=== PATIENT | female | born 1990 | race Hispanic/Latino ===

== ENCOUNTER 2018-06-08 10:51 | Observation (INO) | payer OTHER | END 2018-06-08 13:35 | disposition home or self-care (01) | LOC: LDH 10:51 | DX: Z34.93 Encounter for supervision of normal pregnancy, unspecified, third trimester (principal); Z3A.32 32 weeks gestation of pregnancy | CPT/HCPCS: 59025; 76819; G0378 ×4 ==

== ENCOUNTER 2018-07-07 21:13 | Observation (INO) | payer OTHER ==
[~2018-07-07] VITALS: Ht 165.1 cm; Wt 107.0 kg
[2018-07-07 21:57] LABS: APPEARANCE,URINE Clear (CLEAR); BILIRUBIN,URINE Negative (NEGATIVE); COLOR,URINE Yellow (YELLOW); GLUCOSE, URINE (UA) Negative (NEGATIVE); KETONES,URINE Negative (NEGATIVE); LEUKOCYTE ESTERASE ,URINE Negative (NEGATIVE); NITRATE,URINE Negative (NEGATIVE); OCCULT BLOOD,URINE Negative (NEGATIVE); PH,URINE 6.5 (5.0-8.0); PROTEIN,URINE Negative (NEGATIVE); UROBILINOGEN,URINE 0.2 mg/dL (0.2-1.0)
== END 2018-07-07 23:55 | disposition home or self-care (01) ==
LOC: EDH 21:13 → LDH 21:41
DX: O60.03 Preterm labor without delivery, third trimester (principal); O10.913 Unspecified pre-existing hypertension complicating pregnancy, third trimester; O99.343 Other mental disorders complicating pregnancy, third trimester; F32.9 Major depressive disorder, single episode, unspecified; Z3A.36 36 weeks gestation of pregnancy
CPT/HCPCS: 81003; 99285; G0378 ×2